=== PATIENT | male | born 1970 | race African-American/Black ===

== ENCOUNTER 2016-07-27 13:04 | Emergency (ER) | payer SELFPAY ==
[2016-07-27] MEDS ORDERED: NORMAL SALINE 1000 ML 1,000 ML IV ONE (13:31)
--- NOTE | 2016-07-27 13:32 | ER Document Report ---
ED Medical Screen (RME) - General Chief Complaint: Neck Problem Stated Complaint: THROAT PAIN TRAVEL OUTSIDE OF THE [place] IN LAST 30 DAYS: No - HPI Notes: 07/27/16 13:31 Patient coming in for evaluation of left lateral neck mass increasing in size for the last few days patient does smoke. Patient does state pain with swallowing. Patient has no airway compromise able to tolerate secretions at this time.I have greeted and performed a rapid initial assessment of this patient. A comprehensive ED assessment and evaluation of the patient, analysis of test results and completion of the medical decision making process will be conducted by additional ED providers. - Related Data Allergies/Adverse Reactions: No Known Allergies Allergy (Verified 07/27/16 13:17) Past Medical History Renal/ Medical History: Denies: Hx Peritoneal Dialysis - Immunizations Hx Diphtheria, Pertussis, Tetanus Vaccination: No Review of Systems - Review of Systems EENT: Other - Neck mass Physical Exam - Vital signs Vitals: Temp Pulse Resp BP Pulse Ox 98.6 F 84 18 132/92 H 97 07/27/16 13:17 07/27/16 13:17 07/27/16 13:17 07/27/16 13:17 07/27/16 13:17 - General General appearance: Appears well In distress: None - Respiratory Respiratory status: No respiratory distress Chest status: Nontender Breath sounds: Normal Chest palpation: Normal Course - Vital Signs Vital signs: Temp Pulse Resp BP Pulse Ox 98.6 F 84 18 132/92 H 97 07/27/16 13:17 07/27/16 13:17 07/27/16 13:17 07/27/16 13:17 07/27/16 13:17
--- NOTE | 2016-07-27 13:43 | ER Document Report ---
ED General - General Time seen by provider: 13:40 Mode of Arrival: Ambulatory Information source: Patient TRAVEL OUTSIDE OF THE [place] IN LAST 30 DAYS: No - HPI Onset: Other - see HPI note Similar symptoms previously: No Recently seen / treated by doctor: No <GERSON CHARLES - Last Filed: 07/27/16 14:14> <LEANNE OLIVARES - Last Filed: 07/27/16 15:51> - General Chief Complaint: Neck Problem Stated Complaint: THROAT PAIN Notes: Patient is a 46 year old male presenting to the emergency department for a mass on the left-center of his neck. Patient states he noticed the area about 3 days ago. Patient states that he has some irritation to the area when he swallows. Patient denies any fever, cough, or cold symptoms. Patient is a smoker and occasionally drinks alcohol. Patient has no known allergies. (GERSON CHARLES) - Related Data Allergies/Adverse Reactions: No Known Allergies Allergy (Verified 07/27/16 14:33) Past Medical History - General Information source: Patient - Social History Smoking Status: Current Every Day Smoker Frequency of alcohol use: Occasional Family History: None Patient has suicidal ideation: No Patient has homicidal ideation: No - Immunizations Hx Diphtheria, Pertussis, Tetanus Vaccination: No <GERSON CHARLES - Last Filed: 07/27/16 14:14> Review of Systems - Review of Systems Constitutional: No symptoms reported EENT: See HPI Cardiovascular: No symptoms reported Respiratory: No symptoms reported Gastrointestinal: No symptoms reported Genitourinary: No symptoms reported Male Genitourinary: No symptoms reported Musculoskeletal: No symptoms reported Skin: No symptoms reported Hematologic/Lymphatic: No symptoms reported Neurological/Psychological: No symptoms reported -: Yes All other systems reviewed and negative <GERSON CHARLES - Last Filed: 07/27/16 14:14> Physical Exam <GERSON CHARLES - Last Filed: 07/27/16 14:14> - Vital signs Interpretation: Hypertensive - Mildly <LEANNE OLIVARES - Last Filed: 07/27/16 15:51> - Vital signs Vitals: Temp Pulse Resp BP Pulse Ox 98.6 F 88 18 132/92 H 97 07/27/16 13:17 07/27/16 13:17 07/27/16 13:17 07/27/16 13:17 07/27/16 13:17 - Notes Notes: Physical Exam: GENERAL: VS as per nursing doc. Well-appearing, well-nourished and in no acute distress. No hoarseness, normal swallowing function HEAD: Atraumatic, normocephalic. EYES: Pupils equal round and reactive to light, extraocular movements intact, sclera anicteric, no conjunctival injection or discharge. ENT: Nares patent, oropharynx clear without exudates. Moist mucous membranes. Mild tonsillar enlargement but no asymmetry or mass NECK: Normal range of motion, supple without lymphadenopathy. There is a nonpulsatile mobile left soft somewhat cystic appearing mass just left of midline in the thyroid region. It is unclear whether it is contiguous with the thyroid. There is no associated erythema or evidence of abscess. No JVD. No Carotid Bruits. No supraclavicular or axillary adenopathy noted LUNGS: Breath sounds clear to auscultation bilaterally and equal. No wheezes rales or rhonchi. HEART: Normal S1S2. Regular rate and rhythm without murmurs. Equal peripheral pulses. ABDOMEN: Soft, non-tender. No pulsatile mass. EXTREMITIES: Normal range of motion. No calf tenderness. No edema. NEUROLOGICAL: Cranial nerves grossly intact. Normal speech. Normal sensory and motor exams. No gross cerebellar abnormalities. PSYCH: Normal mood, normal affect. SKIN: Warm, dry, no cyanosis, no splinter hemorrhages. Cap refill < 2 sec. (LEANNE OLIVARES) Course - Laboratory Result Diagrams: 07/27/16 13:25 07/27/16 13:25 <GERSON CHARLES - Last Filed: 07/27/16 14:14> - Laboratory Result Diagrams: 07/27/16 13:25 07/27/16 13:25 <LEANNE OLIVARES - Last Filed: 07/27/16 15:51> - Re-evaluation Re-evalutation: 07/27/16 15:48 Discussed with patient findings and follow-up needs. He understands he may need ENT for removal. As we do not have that available at this institution, we will refer him to general surgery for evaluation further. (LEANNE OLIVARES) - Vital Signs Vital signs: Temp Pulse Resp BP Pulse Ox 98.6 F 76 18 134/90 H 98 07/27/16 13:47 04/08/17 13:47 07/27/16 13:47 07/27/16 13:47 07/27/16 13:47 - Laboratory Laboratory results interpreted by me: 07/27/16 07/27/16 13:25 13:25 RDW 14.7 H TSH 0.34 L Discharge <GERSON CHARLES - Last Filed: 07/27/16 14:14> <LEANNE OLIVARES - Last Filed: 07/27/16 15:51> - Discharge Clinical Impression: Lipoma of neck Condition: Good Additional Instructions: Please call Office today to arrange surgical follow-up and evaluation. Please see the attached name and phone number. Referrals: ANIKET BENJAMIN MD [ACTIVE STAFF] - Follow up in 3-5 days Scribe Attestation: 07/27/16 15:50 I personally performed the services described in the documentation, reviewed and edited the documentation which was dictated to the scribe in my presence, and it accurately records my words and actions. (LEANNE OLIVARES) Scribe Documentation - Scribe Written by Scribe:: Gerson Charles 07/27/16 14:33 acting as scribe for :: Renny <GERSON CHARLES - Last Filed: 07/27/16 14:14>
[2016-07-27 14:02] LABS: ABSOLUTE LYMPHOCYTES (AUTO) 1.9 10^3/uL (0.5-4.7); ABSOLUTE MONOCYTES (AUTO) 0.5 10^3/uL (0.1-1.4); ABSOLUTE NEUT (AUTO) 6.8 10^3/uL (1.7-8.2); BASOPHILS % (AUTO) 0.4 % (0-2); EOSINOPHILS % (AUTO) 0.4 % (0-6); HEMATOCRIT 44.1 % (37.9-51.0); HEMOGLOBIN 14.9 g/dL (13.5-17.0); HGB HCT DIFFERENCE 0.6; LYMPHOCYTES % (AUTO) 20.7 % (13-45); MEAN CORPUSCULAR HEMOGLOBIN 28.6 pg (27.0-33.4); MEAN CORPUSCULAR HGB CONC 33.7 g/dL (32.0-36.0); MEAN CORPUSCULAR VOLUME 85 fl (80-97); MONOCYTES % (AUTO) 5.6 % (3-13); RED CELL DISTRIBUTION WIDTH 14.7 % (11.5-14.0); SEGMENTED NEUTROPHILS % (AUTO) 72.9 % (42-78); WHITE BLOOD COUNT 9.3 10^3/uL (4.0-10.5)
[2016-07-27 14:18] LABS: ANION GAP 14 (5-19); BLOOD UREA NITROGEN 11 mg/dL (7-20); CALCIUM 9.8 mg/dL (8.4-10.2); CARBON DIOXIDE 23 mmol/L (22-30); CHLORIDE 107 mmol/L (98-107); CREATININE RESULT 1.01 mg/dL (0.52-1.25); GLUCOSE 101 mg/dL (75-110); POTASSIUM 4.4 mmol/L (3.6-5.0)
[2016-07-27 15:04] LABS: THYROID STIMULATING HORMONE 0.34 uIU/mL (0.47-4.68)
[2016-07-27 16:14] VITALS: BP 133/97
== END 2016-07-27 16:02 | disposition home or self-care (01) ==
LOC: ER 13:04
DX: D17.0 Benign lipomatous neoplasm of skin and subcutaneous tissue of head, face and neck (principal); R07.0 Pain in throat; M54.2 Cervicalgia; F17.200 Nicotine dependence, unspecified, uncomplicated
CPT/HCPCS: 36415; 76536; 80048; 84439; 84443; 85025; 86308; 87070; 87880; 99284

== ENCOUNTER 2016-09-14 14:19 | Emergency (ER) | payer SELFPAY ==
[2016-09-14] MEDS ORDERED: ONDANSETRON 4 MG TAB.RAPDIS PO ONE (14:36)
--- NOTE | 2016-09-14 14:37 | ER Document Report ---
HPI - HPI Patient complains to provider of: lip tingling Onset: Just prior to arrival Onset/Duration: Gradual Quality of pain: No pain Pain Level: 0 Context: States that he was drinking a fountain drink from [employer] and noticed that there was an insect in his drink that appeared to be baby cockroach. Patient complains of numbness to his lip, headache and nausea. Associated Symptoms: Nausea, Other - lip tingling. denies: Chest pain, Nonproductive cough, Productive cough, Fever Exacerbated by: Denies Relieved by: Denies Similar symptoms previously: No Recently seen / treated by doctor: No - ROS ROS below otherwise negative: Yes Systems Reviewed and Negative: Yes All other systems reviewed and negative - EENT EENT: DENIES: Ear Pain Notes: lip tingling - CARDIOVASCULAR Cardiovascular: DENIES: Chest pain - RESPIRATORY Respiratory: DENIES: Trouble Breathing, Coughing - GASTROINTESTINAL Gastrointestinal: REPORTS: Nausea. 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 IN LAST 30 DAYS: No - HEENT HEENT: Atraumatic, Normal ENT Exam, Normocephalic - NECK Neck: Normal Inspection, Supple. negative: Lymphadenopathy-Left, Lymphadenopathy-Right - RESPIRATORY Respiratory: Breath Sounds Normal, No Respiratory Distress, Chest Non-Tender O2 Sat by Pulse Oximetry: 99 - CARDIOVASCULAR Cardiovascular: Regular Rate, Regular Rhythm, No Murmur - GI/ABDOMEN Gastrointestinal: Abdomen Soft, Abdomen Non-Tender, No Organomegaly - BACK Back: Normal Inspection. negative: CVA Tenderness-Right, CVA Tenderness-Left - MUSCULOSKELETAL/EXTREMETIES Musculoskeletal/Extremeties: BOWEN PIPER - NEURO Level of Consciousness: Awake, Alert, Appropriate Motor/Sensory: No Motor Deficit - DERM Integumentary: Warm, Dry, No Rash Course - Re-evaluation Re-evalutation: 09/14/16 15:12 Pt reports nausea is resolved, pt tolerated oral fluids. Patient without any oral swelling or signs of angioedema. Respirations even and unlabored. 09/14/16 15:15 The patient has been informed that they may have pre-hypertension or hypertension based on a blood pressure reading in the emergency department. I recommend that patient call the primary care provider listed on their discharge instructions or a physician of their choice by this week to arrange follow-up for further evaluation of possible pre-hypertension her hypertension. - Vital Signs Vital signs: Temp Pulse Resp BP Pulse Ox 98.6 F 96 18 151/104 H 99 09/14/16 14:23 09/14/16 14:23 09/14/16 14:23 09/14/16 14:23 09/14/16 14:23 Discharge - Discharge Clinical Impression: Elevated blood pressure reading, Nausea, lip tingling , hx insect in drink Condition: Stable Disposition: HOME, SELF-CARE Instructions: Use of Diphenhydramine, Antinausea Medication ([facility]), Nausea or Vomiting, Nonspecific ([facility]) Additional Instructions: Return immediately for any new or worsening symptoms: lip swelling, difficulty breathing, persistent vomiting, or any concerning symptoms Followup with your primary care provider, call tomorrow to make a followup appointment You may take benadryl over the counter to help with symptoms Prescriptions: Ondansetron HCl [Zofran 4 mg Tablet] 1 - 2 tab PO Q6 PRN #15 tablet PRN Reason: Forms: Elevated Blood Pressure Referrals: [facility] [Provider Group] - Follow up as needed
[2016-09-14 15:25] VITALS: BP 120/88
== END 2016-09-14 15:25 | disposition home or self-care (01) ==
LOC: ER 14:19
DX: R03.0 Elevated blood-pressure reading, without diagnosis of hypertension (principal); R11.0 Nausea; R20.2 Paresthesia of skin
CPT/HCPCS: 99283; S0119